=== PATIENT | female | born 1940 | race Caucasian/White ===

== ENCOUNTER 2022-02-18 21:46 | Emergency (ER) | payer MEDICARE, SELFPAY ==
--- NOTE | ~2022-02-18 | XR_ITS ---
EXAMINATION: XR chest 2V DATE: 02/19/2022 01:15 INDICATION: Dyspnea. TECHNIQUE: Frontal and lateral views of the chest were obtained. COMPARISON: None. FINDINGS: There are airspace opacities at the lung bases. No pleural effusion or pneumothorax. The he art size is normal. IMPRESSION: 1. Airspace opacities at the lung bases, consistent with atelectasis versus pneumonia. Reviewed, dictated and finalized at location A. IMPRESSION: 1. Airspace opacities at the lung bases, consistent with atelectasis versus pne umonia.
[2022-02-18 22:04] VITALS: BP 110/49; PULSE 98; RESP 22; TEMP 35.6; O2SAT 95
--- NOTE | 2022-02-18 22:08 | ECG_ITS ---
Measurements Intervals [place] Rate: 103 P: 58 MS: 202 QRS: 44 QRSD: 81 T: 61 QT: 352 QTc: 462 Interpretive Statements SINUS TACHYCARDIA RIGHT VENTRICULAR CONDUCTION DELAY Electronically Signed On 02-19-2022 11:12:25 CDT by Eliseo Castellanos M.D.
[2022-02-18 22:09] VITALS: O2SAT 92
--- NOTE | 2022-02-18 22:10 | ED.SOB ---
HPI - SOB/Dyspnea General Chief Complaint: Shortness of Breath/Dyspnea Stated Complaint: AMS Time Seen by Provider: 02/18/22 21:58 Source: patient History of Present Illness HPI Narrative: Patient presents with cough. He reports she has had cough for a couple days also history of COPD the doctor primary care doctor and they wrote a prescription for steroids and an antibiotic. She took her steroids today and her family noted she is acting a little differently they are checking her oxygen levels and she was in the 80s having a hard time getting her oxygen level a brought to the ER for further evaluation. Patient does have home as needed oxygen and she has been wearing approximately 2 L all day today she currently does not wear any oxygen. Did not note any fevers nausea vomiting or chest pain. Patient transferred to the ER by EMS and they were given a nebulized therapy in route Related Data Allergies Allergy/AdvReac Type Severity Reaction Status Date / Time No Known Allergies Allergy Verified 02/18/22 22:11 Review of Systems Review of Systems: CONSTITUTIONAL: Denies fever, chills, or sweats. EYES: Denies visual changes, redness, or discharge. ENT: Denies rhinorrhea, congestion, sore throat, or otalgia. CARDIOVASCULAR: Denies chest pain, palpitations, or edema. RESPIRATORY: Shortness of breath and cough GASTROINTESTINAL: Denies abdominal pain, nausea, vomiting, or diarrhea. GENITOURINARY: Denies dysuria or hematuria. SKIN: Denies rash or itching. MUSCULOSKELETAL: Denies back pain, joint pain, or myalgia. NEUROLOGIC: Denies headache, numbness, dizziness, or weakness. PSYCHIATRIC: Denies anxiety or depression. All systems reviewed & are unremarkable except as noted in HPI and below Exam Narrative: GENERAL: Well-appearing, well-nourished, and in no acute distress. HEAD: Normocephalic, atraumatic. EYES: PERRLA and EOMI. ENT: Nares clear, no rhinorrhea or epistaxis. Mucous membranes moist. NECK: Supple. No masses. No JVD CHEST: Diminished aeration in all lung [place] with mild rhonchi HEART: Regular rate and rhythm. No murmur heard. Normal peripheral pulses. ABDOMEN: Soft, nontender, nondistended, normal active bowel sounds. EXTREMITIES: Normal range of motion. No edema. SKIN: Warm, dry, no rash. NEURO: No focal deficits. Alert and oriented x3. PSYCH: Normal mood and affect. Course Reevaluation(s) Reevaluation #1: Patient resting comfortably feeling much improved results reviewed with patient and family. Given patient's improvement the family feels they can manage her symptoms at home they do have oxygen as needed. They also have already picked up antibiotics and prednisone prescribed their primary care provider and they would like to do a trial of home therapy. Given patient's improvement. She lives with her daughter who stays at home all day with her I think a trial of home therapy is reasonable. Date: 02/19/22 Time: 02:05 Vital Signs Vital signs: Vital Signs Temperature 35.6 C L 02/18/22 22:04 Pulse Rate 98 02/18/22 22:04 Respiratory Rate 22 H 02/18/22 22:04 Blood Pressure 110/49 L 02/18/22 22:04 Pulse Oximetry 95 02/18/22 22:04 Temperature 35.6 C L 02/18/22 22:04 Pulse Rate 90 02/19/22 02:14 Respiratory Rate 20 02/19/22 02:14 Blood Pressure 92/52 L 02/19/22 02:14 Pulse Oximetry 90 02/19/22 02:14 Oxygen Delivery Room Air 02/18/22 23:07 Oxygen Flow Rate 0 02/18/22 22:09 MDM - SOB/Dyspnea MDM Narrative Medical decision making narrative: H&P as above, vss, pt looks clinically well, exam diminished aeration in all lung [place] but improved after nebulized therapy labs clinically unremarkable, img without acute process, additional labs/img considered, symptomatic relief available as needed, on reevaluation pt continues to looks clinically well. Suspect COPD exacerbation, dns severe sepsis, severe dehydration, pneumonia plan to tx/monitor as op w/ pcm f/u findings/plan discussed w
[2022-02-18] MEDS: ALBUTEROL SULFATE NEB 2.5 MG/3 ML INH 15 MG INHALATION (22:38)
[2022-02-18] MEDS: IPRATROPIUM BR 0.02% INH SOLN 0.5 MG/2.5 ML VIAL 1.5 MG INHALATION (22:39)
[2022-02-18 22:46] LABS: Basophils Percent Auto 0.3 % (0.2-1.2); Hematocrit 38.7 % (37.0-47.0); Hemoglobin 12.5 g/dL (12.0-15.0); Immature Granulocyte Absolute 0.02 K/mm3 (0.00-0.031); Immature Granulocyte Percent A 0.2 % (0-0.5); Lymphocytes Absolute Auto 2.82 K/mm3 (0.9-3.2); Lymphocytes Percent Auto 32.2 % (18.3-44.2); Mean Corpuscular HGB Conc 32.3 g/dl (32-36); Mean Corpuscular Volume 105.2 fl (80-100); Mean Platelet Volume 9.4 fl (7.4-10.4); Monocytes Absolute Auto 0.7 K/mm3 (0.1-0.6); Monocytes Percent Auto 8.4 % (2.6-8.5); Neutrophils Absolute Auto 5.2 K/mm3 (1.3-6.7); Neutrophils Percent Auto 58.9 % (45.5-73.1); Platelet Count Result 199 k/mm3 (150-375); Red Blood Count 3.68 M/mm3 (4.2-5.4); Red Cell Distribution Width 13.2 % (11.5-14.5); White Blood Count 8.8 K/mm3 (4.5-10.0)
[2022-02-18 22:57] LABS: Alanine Aminotransferase 14 U/L (6-35); Alkaline Phosphatase 68 U/L (38-126); Anion Gap 3 mmol/L (8-16); Aspartate Amino Transferase 34 U/L (14-36); Bilirubin,Total 0.4 mg/dL (0.2-1.3); Blood Urea Nitrogen 20 mg/dL (7-17); Calcium 9.2 mg/dL (8.4-10.2); Carbon Dioxide 33 mmol/L (22-30); Chloride 101 mmol/L (98-107); Estimated CRCL calculation 37 ml/min; Estimated Glomerular Filt Rate > 60; Glucose 127 mg/dL (65-110); Potassium 3.7 mmol/L (3.4-5.0); Sodium 137 mmol/L (137-145)
[2022-02-18 22:58] LABS: Alveolar/Arterial O2 Gradient 51.2 mmHg; Fractional Inspired Oxygen 21 %; HCO3 ABG 24.1 mEq/l (22.0-26.0); Oxygen Content ABG 15.8 %vol (16.0-22.0); Oxygen Saturation ABG 88.9 % (95.0-100.0); PCO2 ABG 37.4 mmHg (35.0-45.0); PO2 ABG 53.7 mmHg (80.0-100.0); PO2 FiO2 Ratio Arterial Blood 2.56 %; Total Hemoglobin 12.8 g/dL (12.0-18.0); pH ABG 7.427 (7.350-7.450)
[2022-02-18 23:00] LABS: Device ROOM AIR; Modified Allen's Test Pass; Oxyhemoglobin 87.7 % THb (90.0-100.0); Site Drawn RIGHT RADIAL
[2022-02-18 23:02] VITALS: PULSE 84; RESP 18
[2022-02-18 23:07] VITALS: O2SAT 93
[2022-02-19 00:49] VITALS: PULSE 84; RESP 18
[2022-02-19 02:14] VITALS: BP 92/52; PULSE 90; RESP 20; O2SAT 90
== END 2022-02-19 02:23 | disposition home or self-care (01) ==
PROVIDERS: Emergency Provider Emergency Medicine; PCP Internal Medicine
DX: J44.1 Chronic obstructive pulmonary disease with (acute) exacerbation (principal); R00.0 Tachycardia, unspecified
CPT/HCPCS: 36415; 36600; 71046; 80053; 82805; 85025; 93005; 94640; 99283